=== PATIENT | male | born 1940 | race Caucasian/White ===

== ENCOUNTER → 2016-07-30 | Outpatient (CLI) | payer MEDICARE ==
[~2016-07-30] MED LIST: ASCO10004 PO; ASPI-621 PO; ATOR40TA PO; CALC200T3 PO; CHOL200024 PO; DOCU-30 PO; HYDR-3240 PO; LEVO50TA PO; MULT-516 PO; NITR12SP2 SL; PRAS10TA4 PO; TICA90TA PO
[2016-07-30 14:00] LABS: ASPARTATE AMINO TRANSFERASE 24 U/L (15-37); BLOOD UREA NITROGEN 22 mg/dL (7-18)
== END | disposition home or self-care (01) ==
LOC: CVU 12:31
PROVIDERS: ATTEND Surgery Vascular Surgery
DX: I71.4 Abdominal aortic aneurysm, without rupture (principal); E03.9 Hypothyroidism, unspecified; E78.4 Other hyperlipidemia; Z86.79 Personal history of other diseases of the circulatory system; Z79.891 Long term (current) use of opiate analgesic
CPT/HCPCS: 36415; 80053; 80061; 85025; 93978

== ENCOUNTER → 2017-11-18 | Outpatient (CLI) | payer MEDICARE ==
[~2017-11-18] MED LIST changes: +DOCU-131 PO; -DOCU-30 PO
== END | disposition home or self-care (01) ==
LOC: CVU 09:27
PROVIDERS: ATTEND Surgery Vascular Surgery
DX: I71.4 Abdominal aortic aneurysm, without rupture (principal); I72.3 Aneurysm of iliac artery
CPT/HCPCS: 93978

== ENCOUNTER → 2018-01-14 | Outpatient (CLI) | payer MEDICARE ==
[2018-01-14 09:25] LABS: BASOPHILS # (AUTO) 0.03 x10^3/uL (0-0.1); BASOPHILS % (AUTO) 0 % (0-1); EOSINOPHILS # (AUTO) 0.37 x10^3/uL (0-0.4); EOSINOPHILS % (AUTO) 6 % (1-7); LYMPHOCYTES # (AUTO) 1.65 x10^3/uL (1-3.4); LYMPHOCYTES % (AUTO) 25 % (22-44); MD NO; MEAN CORPUSCULAR HEMOGLOBIN 32.5 pg (27.5-34.5); MEAN CORPUSCULAR HGB CONC 34.2 g/dL (33.2-36.2); MEAN CORPUSCULAR VOLUME 94.9 fL (81-97); MEAN PLATELET VOLUME 9.2 fL (7.4-10.4); MONOCYTES # (AUTO) 0.73 x10^3/uL (0.2-0.8); MONOCYTES % (AUTO) 11 % (2-9); NEUTROPHILS # (AUTO) 3.91 x10^3/uL (1.8-6.8); NEUTROPHILS % (AUTO) 59 % (42-75); PLATELET COUNT 162 x10^3/uL (130-400); RED BLOOD COUNT 5.32 x10^6/uL (4.38-5.82); RED CELL DISTRIBUTION WIDTH 13.9 % (9.4-14.8)
[2018-01-14 09:33] LABS: ALBUMIN 3.7 g/dL (3.4-5.0); ANION GAP 7 mmol/L (5-15); CHLORIDE 107 mmol/L (98-107)
[2018-01-14 09:43] LABS: ALANINE AMINOTRANSFERASE 35 U/L (12-78); ALKALINE PHOSPHATASE 75 U/L (45-117); BILIRUBIN,TOTAL 0.6 mg/dL (0.2-1.0); CHOL/HDL RATIO 4.1; CHOLESTEROL, TOTAL 118 mg/dL (140-239); CREATININE 1.18 mg/dL (0.7-1.3); HDL CHOL % 25 % (26-37); HDL CHOLESTEROL (DIRECT) 29 mg/dL (40-60); LDL CHOLESTEROL,CALCULATED 56 mg/dL (54-169); LDL/HDL RATIO 1.9 (0.5-3.0); T4 (THYROXINE) 13.3 mcg/dL (4.5-12.1); TRIGLYCERIDES 164 mg/dL (50-200); VLDL CHOLESTEROL 33 mg/dL (0-25)
== END | disposition home or self-care (01) ==
LOC: LAB 09:09
PROVIDERS: ATTEND Internal Medicine Cardiovascular Disease
DX: I25.10 Atherosclerotic heart disease of native coronary artery without angina pectoris (principal); E03.9 Hypothyroidism, unspecified
CPT/HCPCS: 36415; 80053; 80061; 84436; 84481; 85025

== ENCOUNTER 2019-05-19 15:00 | Emergency (ER) | payer MEDICARE ==
[~2019-05-19] VITALS: Ht 190.5 cm; Wt 83.7 kg
[~2019-05-19 15:00] MED LIST changes: -ASPI-621 PO; +ASPI81TA45 PO
--- NOTE | 2019-05-19 15:51 | NUR ---
SITTER FOR ANOTHER ROOM SAY PT WALK OUT OF ROOM AND OUT TO LOBBY 20 MIN AGO. WRITTER AND TASK RN WHO IS COVERING LUNCH FOR RN FOR LAST 10 MIN WENT INTO ROOM AND FOUND PT GONE. IV WAS ON BED WELL PT PULSE OX AND EKG LEADS. PT ELOPED
[2019-05-19] MEDS ORDERED: CEFTRIAXONE PMX 1GM/50ML 50 ML ONE (16:18)
--- NOTE | 2019-05-19 16:39 | NUR ---
IV ESTABLISHED AND 2ND BLOOD CULTURE DRAWN UNDER STERILE TECHNIQUE. IV ABX STARTED AFTER BC DRAWN. PT PLACED ON MONITOR. ON 2L NC. AT BEDSIDE. CALL LIGHT WTIHIN REACH.
[2019-05-19 16:49] LABS: BASOPHILS # (AUTO) 0.01 x10^3/uL (0-0.1); BASOPHILS % (AUTO) 0 % (0-1); EOSINOPHILS # (AUTO) 0.25 x10^3/uL (0-0.4); EOSINOPHILS % (AUTO) 3 % (1-7); LYMPHOCYTES # (AUTO) 1.42 x10^3/uL (1-3.4); LYMPHOCYTES % (AUTO) 14 % (22-44); MD NO; MEAN CORPUSCULAR HGB CONC 32.9 g/dL (33.2-36.2); MEAN CORPUSCULAR VOLUME 97.1 fL (81-97); MEAN PLATELET VOLUME 8.9 fL (7.4-10.4); MONOCYTES # (AUTO) 0.99 x10^3/uL (0.2-0.8); MONOCYTES % (AUTO) 10 % (2-9); NEUTROPHILS # (AUTO) 7.17 x10^3/uL (1.8-6.8); NEUTROPHILS % (AUTO) 73 % (42-75); PLATELET COUNT 292 x10^3/uL (130-400); RED BLOOD COUNT 5.03 x10^6/uL (4.38-5.82); RED CELL DISTRIBUTION WIDTH 13.8 % (9.4-14.8)
[2019-05-19 16:55] LABS: ANION GAP 6 mmol/L (5-15); CALCIUM 9.4 mg/dL (8.5-10.1); CHLORIDE 104 mmol/L (98-107); CREATININE 1.11 mg/dL (0.7-1.3)
[2019-05-19] MEDS ORDERED: SODIUM CHLORIDE 0.9% 1,000 ML IV ONE (17:00)
[2019-05-19] MEDS ORDERED: CEFTRIAXONE PMX 1GM/50ML 50 ML IV ONE (17:00)
[2019-05-19] MEDS ORDERED: SODIUM CHLORIDE FLUSH 10ML SYR IVF ONE (17:30)
--- NOTE | 2019-05-19 17:45 | NUR ---
PT REQUESTING TO BE DISCHARGED HOME AND NOT ADMITTED, PER OK TO HOLD VIBRAMYCIN. RA SPO2 93%. PER MD BELL TO NOT WAIT FOR VIBRAMYCIN AND START ORAL ABX TONIGHT.
[2019-05-19 17:54] VITALS: BP 133/92
[2019-05-19] MEDS ORDERED: DOXYCYCLINE 100 MG in DEXTROSE 5% 250 ML IV ONE (18:00)
== END 2019-05-19 17:57 | disposition home or self-care (01) ==
LOC: ED 17:30
DX: J15.9 Unspecified bacterial pneumonia (principal); E78.00 Pure hypercholesterolemia, unspecified; I25.2 Old myocardial infarction; Z95.5 Presence of coronary angioplasty implant and graft; Z86.39 Personal history of other endocrine, nutritional and metabolic disease
CPT/HCPCS: 36415; 80048; 82040; 83605; 85025; 87040; 93005; 96365; 99283; J0696; J7030

== ENCOUNTER 2019-06-08 12:38 | Inpatient (IN) | payer MEDICARE ==
[~2019-06-08] VITALS: Ht 190.5 cm; Wt 83.2 kg
--- NOTE | 2019-06-08 13:12 | NUR ---
PT C/O WEAKNESS, COUGH AND EYE DISCHARGE STARTING WEDNESDAY PRAKASH. HX BACTERIAL PNA A COUPLE WEEKS AGO. PT FINISHED ABX AND FELT BETTER FOR A WHILE, THEN STARTED FEELING WORSE. CONNECTED TO MONITORING. CALL LIGHT IN REACH. AT BEDSIDE.
[2019-06-08] MEDS ORDERED: SODIUM CHLORIDE 0.9% 1,000 ML IV ONE (13:14)
[2019-06-08] MEDS ORDERED: SODIUM CHLORIDE FLUSH 10ML SYR IVF ONE (13:30)
[2019-06-08] MEDS ORDERED: methylPREDNISolone SOD SUCC 125 MG/2 ML IV ONE (13:30)
[2019-06-08] MEDS ORDERED: ALBUTEROL SULFATE 2.5 MG/3 ML NPPB ONE (13:30)
[2019-06-08] MEDS ORDERED: ALBUTEROL 0.5%, 20ML ONE (13:30)
[2019-06-08] MEDS ORDERED: AZITHROMYCIN 500 MG in SODIUM CHLORIDE 0.9% 250 ML IVPB ONE (13:30)
[2019-06-08] MEDS ORDERED: ALBUTEROL SULFATE 2.5 MG/3 ML ONE (13:30)
[2019-06-08] MEDS ORDERED: CIPROFLOXACIN OPHTH SOLN 0.3%, 5ML EACHEYE SCH (13:30)
[2019-06-08] MEDS ORDERED: CEFTRIAXONE PMX 1GM/50ML 50 ML IVPB ONE (13:30)
[2019-06-08 13:45] LABS: MEAN CORPUSCULAR HEMOGLOBIN 32.1 pg (27.5-34.5); MEAN CORPUSCULAR HGB CONC 33.2 g/dL (33.2-36.2); MEAN CORPUSCULAR VOLUME 96.7 fL (81-97); MEAN PLATELET VOLUME 9.6 fL (7.4-10.4); PLATELET COUNT 170 x10^3/uL (130-400); RED BLOOD COUNT 4.61 x10^6/uL (4.38-5.82); RED CELL DISTRIBUTION WIDTH 14.3 % (9.4-14.8)
[2019-06-08 13:51] LABS: RAPID INFLUENZA A Negative (Negative); RAPID INFLUENZA B Negative (Negative)
[2019-06-08] MEDS ORDERED: methylPREDNISolone SOD SUCC 125 MG/2 ML ONE (13:52)
[2019-06-08] MEDS ORDERED: CEFTRIAXONE PMX 1GM/50ML 50 ML ONE (13:52)
[2019-06-08 13:57] LABS: ALANINE AMINOTRANSFERASE 22 U/L (12-78); ALBUMIN 2.9 g/dL (3.4-5.0); ANION GAP 7 mmol/L (5-15); CALCIUM 9.2 mg/dL (8.5-10.1); CHLORIDE 103 mmol/L (98-107); CREATININE 1.12 mg/dL (0.7-1.3)
[2019-06-08 13:59] LABS: ALKALINE PHOSPHATASE 77 U/L (45-117); BILIRUBIN,TOTAL 0.9 mg/dL (0.2-1.0); TOTAL PROTEIN 7.3 g/dL (6.4-8.2)
--- NOTE | 2019-06-08 14:05 | NUR ---
IV ABX STARTED AND MEDS ADMIN PER JUL. 2 SETS BLOOD CX DRAWN PRIOR TO ABX STARTED. PT RESTING COMFORTABLY ON GURNEY. NADN. AT BEDSIDE.
[2019-06-08 14:26] LABS: BASOPHILS # (AUTO) 0.04 x10^3/uL (0-0.1); BASOPHILS % (AUTO) 0 % (0-1); EOSINOPHILS # (AUTO) 0.17 x10^3/uL (0-0.4); EOSINOPHILS % (AUTO) 2 % (1-7); LYMPHOCYTES # (AUTO) 1.44 x10^3/uL (1-3.4); LYMPHOCYTES % (AUTO) 13 % (22-44); MD SCAN; MONOCYTES # (AUTO) 2.11 x10^3/uL (0.2-0.8); MONOCYTES % (AUTO) 19 % (2-9); NEUTROPHILS # (AUTO) 7.14 x10^3/uL (1.8-6.8); NEUTROPHILS % (AUTO) 66 % (42-75)
--- NOTE | 2019-06-08 14:58 | NUR ---
DIET TRAY DELIVERED
[2019-06-08] MEDS ORDERED: AZITHROMYCIN 500 MG in SODIUM CHLORIDE 0.9% 250 ML IV SCH (15:30)
[2019-06-08] MEDS ORDERED: NITROGLYCERIN 0.4 MG/SPRAY SL PRN (15:30)
[2019-06-08] MEDS ORDERED: CALCIUM CARBONATE 500 MG TAB.CHEW PO SCH (15:30)
[2019-06-08] MEDS ORDERED: ENOXAPARIN 40 MG/0.4 ML SQ SCH (15:30)
--- NOTE | 2019-06-08 16:33 | NUR ---
REPORT GIVEN TO EPI SALAZAR.
[2019-06-08 17:51] VITALS: BP 121/77
[2019-06-08] MEDS: NICOTINE 21 MG/24 HR PATCH.TD24 TD SCH (18:12)
[2019-06-08] MEDS: ENOXAPARIN 40 MG/0.4 ML SQ SCH (18:13)
[2019-06-08] MEDS: OFLOXACIN OPHTH 0.3%, 5ML EACHEYE SCH ×3 (18:13→22:10)
[2019-06-08 19:45] VITALS: BP 115/74
[2019-06-08] MEDS: ATORVASTATIN 40 MG TABLET PO SCH (20:09)
[2019-06-08 20:29] LABS: TROPONIN I 0.023 ng/mL (0.000-0.045)
[2019-06-08] MEDS: methylPREDNISolone SOD SUCC 40 MG/ML IV SCH (22:10)
[2019-06-08] MEDS ORDERED: CALCIUM CARBONATE 500 MG TAB.CHEW PO PRN (22:30)
[2019-06-09] MEDS: OFLOXACIN OPHTH 0.3%, 5ML EACHEYE SCH ×13 (00:08→23:32)
[2019-06-09 01:00] VITALS: BP 117/78
[2019-06-09 02:45] LABS: BASOPHILS # (AUTO) 0.01 x10^3/uL (0-0.1); BASOPHILS % (AUTO) 0 % (0-1); EOSINOPHILS % (AUTO) 0 % (1-7); LYMPHOCYTES % (AUTO) 11 % (22-44); MD NO; MEAN CORPUSCULAR HEMOGLOBIN 32.2 pg (27.5-34.5); MEAN CORPUSCULAR HGB CONC 33.4 g/dL (33.2-36.2); MEAN CORPUSCULAR VOLUME 96.6 fL (81-97); MEAN PLATELET VOLUME 9.8 fL (7.4-10.4); MONOCYTES # (AUTO) 0.21 x10^3/uL (0.2-0.8); MONOCYTES % (AUTO) 3 % (2-9); NEUTROPHILS % (AUTO) 86 % (42-75); PLATELET COUNT 168 x10^3/uL (130-400); RED BLOOD COUNT 4.61 x10^6/uL (4.38-5.82); RED CELL DISTRIBUTION WIDTH 13.8 % (9.4-14.8)
[2019-06-09 02:56] LABS: ALANINE AMINOTRANSFERASE 27 U/L (12-78); ALBUMIN 2.7 g/dL (3.4-5.0); ANION GAP 5 mmol/L (5-15); CALCIUM 8.9 mg/dL (8.5-10.1); CHLORIDE 107 mmol/L (98-107)
[2019-06-09 02:59] LABS: ALKALINE PHOSPHATASE 73 U/L (45-117); BILIRUBIN,TOTAL 0.4 mg/dL (0.2-1.0); TOTAL PROTEIN 7.2 g/dL (6.4-8.2)
[2019-06-09 03:01] LABS: TROPONIN I 0.019 ng/mL (0.000-0.045)
[2019-06-09] MEDS: methylPREDNISolone SOD SUCC 40 MG/ML IV SCH ×2 (06:12→15:05)
[2019-06-09] MEDS: LEVOTHYROXINE 50 MCG TABLET PO SCH (06:12)
[2019-06-09 07:13] VITALS: BP 151/73
[2019-06-09] MEDS: ASPIRIN 81 MG TABLET EC PO SCH (08:50)
[2019-06-09] MEDS: MULTIVITAMIN 1 TABLET PO SCH (08:50)
[2019-06-09] MEDS: DORZOL OP SCH ×2 (11:00→19:58)
[2019-06-09] MEDS: TIMOL OP SCH ×2 (11:00→19:58)
[2019-06-09] MEDS: CEFTRIAXONE PMX 2GM/50ML 50 ML IV SCH (13:56)
[2019-06-09 14:09] VITALS: BP 109/72
[2019-06-09] MEDS: NICOTINE 21 MG/24 HR PATCH.TD24 TD SCH (18:36)
[2019-06-09] MEDS: ENOXAPARIN 40 MG/0.4 ML SQ SCH (18:36)
[2019-06-09 19:38] VITALS: BP 120/78
[2019-06-09] MEDS: ATORVASTATIN 40 MG TABLET PO SCH (19:57)
[2019-06-09] MEDS: methylPREDNISolone SOD SUCC 125 MG/2 ML IV SCH (23:32)
[2019-06-10] MEDS: OFLOXACIN OPHTH 0.3%, 5ML EACHEYE SCH ×7 (02:00→14:00)
[2019-06-10 02:25] VITALS: BP 123/74
[2019-06-10] MEDS: LEVOTHYROXINE 50 MCG TABLET PO SCH (05:52)
[2019-06-10 06:54] VITALS: BP 126/83
[2019-06-10] MEDS: methylPREDNISolone SOD SUCC 125 MG/2 ML IV SCH (07:42)
[2019-06-10] MEDS: DORZOL OP SCH (07:43)
[2019-06-10] MEDS: TIMOL OP SCH (07:43)
[2019-06-10] MEDS ORDERED: NICO-487 TD (08:28)
[2019-06-10] MEDS ORDERED: TIOT18CA INH (08:28)
[2019-06-10] MEDS ORDERED: FLUT1DIS IH (08:28)
[2019-06-10] MEDS ORDERED: CEFD300C37 PO (08:28)
[2019-06-10] MEDS ORDERED: PRED10TA14 PO (08:28)
[2019-06-10] MEDS ORDERED: IPRA3AMP30 INH (08:28)
[2019-06-10] MEDS ORDERED: AZIT500T10 PO (08:28)
[2019-06-10] MEDS: ASPIRIN 81 MG TABLET EC PO SCH (08:59)
[2019-06-10] MEDS: MULTIVITAMIN 1 TABLET PO SCH (09:00)
[2019-06-10] MEDS: CEFTRIAXONE PMX 2GM/50ML 50 ML IV SCH (13:14)
== END 2019-06-10 14:57 | disposition home or self-care (01) | DRG 193 ==
LOC: ED 14:32 → EDIP 14:35 → 4WST 16:45
PROVIDERS: ADMIT Internal Medicine; ATTEND Internal Medicine
DX: J15.9 Unspecified bacterial pneumonia (principal); J96.01 Acute respiratory failure with hypoxia; J44.0 Chronic obstructive pulmonary disease with (acute) lower respiratory infection; J44.1 Chronic obstructive pulmonary disease with (acute) exacerbation; H10.30 Unspecified acute conjunctivitis, unspecified eye; I25.10 Atherosclerotic heart disease of native coronary artery without angina pectoris; E03.9 Hypothyroidism, unspecified; E78.00 Pure hypercholesterolemia, unspecified; F17.200 Nicotine dependence, unspecified, uncomplicated; E78.5 Hyperlipidemia, unspecified; I73.9 Peripheral vascular disease, unspecified; E05.90 Thyrotoxicosis, unspecified without thyrotoxic crisis or storm; I25.2 Old myocardial infarction; Z85.528 Personal history of other malignant neoplasm of kidney; Z86.79 Personal history of other diseases of the circulatory system; Z90.5 Acquired absence of kidney; Z95.5 Presence of coronary angioplasty implant and graft; Z95.820 Peripheral vascular angioplasty status with implants and grafts
CPT/HCPCS: 36415; 71045; 80053; 83605; 84145; 84484; 85025; 87040; 87205; 87400; 93005; 93306; 94640; 96365; 96368; 96375; 96376; 99285; G0378; J0456; J0696; J1650; J7611; J2920; J2930; J7030; J7050

== ENCOUNTER → 2020-01-16 | Outpatient (CLI) | payer MEDICARE ==
[~2020-01-16] MED LIST changes: +ASCO100018 PO; -ASCO10004 PO; +AZIT500T10 PO; +CEFD300C37 PO; +FLUT1DIS IH; +IPRA3AMP30 INH; +NICO-487 TD; +NITR12SP10 SL; -NITR12SP2 SL; +PRED10TA14 PO; +TIOT18CA INH
[2020-01-16 09:41] LABS: BASOPHILS # (AUTO) 0.03 x10^3/uL (0-0.1); BASOPHILS % (AUTO) 0 % (0-1); EOSINOPHILS # (AUTO) 0.45 x10^3/uL (0-0.4); EOSINOPHILS % (AUTO) 7 % (1-7); LYMPHOCYTES # (AUTO) 1.74 x10^3/uL (1-3.4); LYMPHOCYTES % (AUTO) 25 % (22-44); MD NO; MEAN CORPUSCULAR HEMOGLOBIN 31.6 pg (27.5-34.5); MEAN CORPUSCULAR HGB CONC 32.4 g/dL (33.2-36.2); MEAN CORPUSCULAR VOLUME 97.6 fL (81-97); MEAN PLATELET VOLUME 9.6 fL (7.4-10.4); MONOCYTES # (AUTO) 0.76 x10^3/uL (0.2-0.8); MONOCYTES % (AUTO) 11 % (2-9); NEUTROPHILS # (AUTO) 3.93 x10^3/uL (1.8-6.8); NEUTROPHILS % (AUTO) 57 % (42-75); PLATELET COUNT 163 x10^3/uL (130-400); RED BLOOD COUNT 5.32 x10^6/uL (4.38-5.82)
[2020-01-16 09:51] LABS: ALBUMIN 3.5 g/dL (3.4-5.0); ANION GAP 3 mmol/L (5-15); CALCIUM 9.2 mg/dL (8.5-10.1); CHLORIDE 110 mmol/L (98-107)
[2020-01-16 10:01] LABS: ALANINE AMINOTRANSFERASE 27 U/L (12-78); ALKALINE PHOSPHATASE 68 U/L (45-117); BILIRUBIN,TOTAL 0.6 mg/dL (0.2-1.0); CHOL/HDL RATIO 3.2; CHOLESTEROL, TOTAL 113 mg/dL (140-239); CREATININE 1.08 mg/dL (0.7-1.3); HDL CHOL % 31 % (26-37); HDL CHOLESTEROL (DIRECT) 35 mg/dL (40-60); LDL CHOLESTEROL,CALCULATED 56 mg/dL (54-169); LDL/HDL RATIO 1.6 (0.5-3.0); T4 (THYROXINE) 10.1 mcg/dL (4.5-12.1); TOTAL PROTEIN 6.7 g/dL (6.4-8.2); TRIGLYCERIDES 112 mg/dL (50-200); VLDL CHOLESTEROL 22 mg/dL (0-25)
== END | disposition home or self-care (01) ==
LOC: LAB 09:11
PROVIDERS: ATTEND Internal Medicine Cardiovascular Disease
DX: I25.10 Atherosclerotic heart disease of native coronary artery without angina pectoris (principal); E03.9 Hypothyroidism, unspecified; J18.9 Pneumonia, unspecified organism; I71.4 Abdominal aortic aneurysm, without rupture
CPT/HCPCS: 36415; 80053; 80061; 84436; 84443; 84481; 85025

== ENCOUNTER 2020-07-30 11:49 | Outpatient (CLI) | payer MEDICARE ==
[~2020-07-30 11:49] MED LIST changes: +HYDR-1067 PO; -HYDR-3240 PO; -NICO-487 TD; +NICO-587 TD
[2020-07-30 12:14] LABS: BASOPHILS % (AUTO) 0 % (0-1); EOSINOPHILS % (AUTO) 7 % (1-7); LYMPHOCYTES % (AUTO) 27 % (22-44); MD NO; MEAN CORPUSCULAR HEMOGLOBIN 32.7 pg (27.5-34.5); MEAN CORPUSCULAR HGB CONC 33.5 g/dL (33.2-36.2); MEAN PLATELET VOLUME 9.5 fL (7.4-10.4); MONOCYTES % (AUTO) 10 % (2-9); NEUTROPHILS % (AUTO) 56 % (42-75); PLATELET COUNT 156 x10^3/uL (130-400); RED BLOOD COUNT 5.39 x10^6/uL (4.38-5.82); RED CELL DISTRIBUTION WIDTH 14.4 % (9.4-14.8)
[2020-07-30 12:46] LABS: CHOL/HDL RATIO 3.6; LDL/HDL RATIO 1.9 (0.5-3.0); T4 (THYROXINE) 11.1 mcg/dL (4.5-12.1)
== END 2020-07-30 23:59 | disposition home or self-care (01) ==
LOC: CVU 11:49
PROVIDERS: ATTEND Internal Medicine Cardiovascular Disease
DX: I71.4 Abdominal aortic aneurysm, without rupture (principal); I65.29 Occlusion and stenosis of unspecified carotid artery; E03.9 Hypothyroidism, unspecified; H10.30 Unspecified acute conjunctivitis, unspecified eye
CPT/HCPCS: 36415; 80061; 84436; 84443; 84481; 85025; 93880; 93978

== ENCOUNTER 2021-01-16 09:06 | Outpatient (CLI) | payer MEDICARE ==
[~2021-01-16 09:06] MED LIST changes: -HYDR-1067 PO; +HYDR-2214 PO
[2021-01-16 09:35] LABS: ALBUMIN 3.5 g/dL (3.4-5.0); ANION GAP 5 mmol/L (5-15); CALCIUM 9.1 mg/dL (8.5-10.1); CHLORIDE 107 mmol/L (98-107)
[2021-01-16 09:49] LABS: ALANINE AMINOTRANSFERASE 37 U/L (12-78); ALKALINE PHOSPHATASE 70 U/L (45-117); BILIRUBIN,TOTAL 0.6 mg/dL (0.2-1.0); CHOL/HDL RATIO 3.5; CHOLESTEROL, TOTAL 122 mg/dL (140-239); CREATININE 1.16 mg/dL (0.7-1.3); HDL CHOL % 29 % (26-37); HDL CHOLESTEROL (DIRECT) 35 mg/dL (40-60); LDL CHOLESTEROL,CALCULATED 64 mg/dL (54-169); LDL/HDL RATIO 1.8 (0.5-3.0); T4 (THYROXINE) 11.8 mcg/dL (4.5-12.1); TOTAL PROTEIN 6.8 g/dL (6.4-8.2); TRIGLYCERIDES 117 mg/dL (50-200); VLDL CHOLESTEROL 23 mg/dL (0-25)
[2021-01-16 10:02] LABS: BASOPHILS % (AUTO) 1 % (0-1); EOSINOPHILS % (AUTO) 5 % (1-7); LYMPHOCYTES % (AUTO) 25 % (22-44); MEAN CORPUSCULAR HEMOGLOBIN 32.5 pg (27.5-34.5); MEAN CORPUSCULAR HGB CONC 33.7 g/dL (33.2-36.2); MEAN PLATELET VOLUME 9.4 fL (7.4-10.4); MONOCYTES % (AUTO) 11 % (2-9); NEUTROPHILS % (AUTO) 59 % (42-75); PLATELET COUNT 167 x10^3/uL (130-400); RED BLOOD COUNT 5.32 x10^6/uL (4.38-5.82)
== END 2021-01-16 23:59 | disposition home or self-care (01) ==
LOC: LAB 09:06
PROVIDERS: ATTEND Internal Medicine Cardiovascular Disease
DX: I25.10 Atherosclerotic heart disease of native coronary artery without angina pectoris (principal); E03.9 Hypothyroidism, unspecified; H10.30 Unspecified acute conjunctivitis, unspecified eye; I65.29 Occlusion and stenosis of unspecified carotid artery; I71.4 Abdominal aortic aneurysm, without rupture; I72.3 Aneurysm of iliac artery; I74.5 Embolism and thrombosis of iliac artery; J15.9 Unspecified bacterial pneumonia; J18.1 Lobar pneumonia, unspecified organism; J18.9 Pneumonia, unspecified organism
CPT/HCPCS: 36415; 80053; 80061; 84436; 84443; 84481; 85025